=== PATIENT | male | born 1945 | race Caucasian/White ===

== ENCOUNTER 2019-05-28 15:46 | Inpatient (IN) ==
[2019-05-28] MEDS ORDERED: Triamcinolone Acet 0.1% CRM 15 GM TUBE TP PRN (21:10)
[2019-05-28] MEDS ORDERED: Nitroglycerin 0.4 MG TAB.SUBL SL PRN (21:10)
[2019-05-28] MEDS: Gabapentin 400 MG CAPSULE PO SCH (22:48)
[2019-05-28] MEDS: Apixaban 5 MG TABLET PO SCH (22:50)
[2019-05-29 05:35] LABS: Basophils % 0.6 %; Eosinophils # 0.5 K/mcL (0.0-0.6); Eosinophils % 6.9 %; Hematocrit 25.5 % (37.5-50.1); Hemoglobin 8.1 g/dL (12.9-16.9); Immature Granulocytes % 0.6 % (0-4); Lymphocytes # 0.7 K/mcL (0.6-4.6); Lymphocytes % 9.5 %; Mean Corpuscular HGB Conc 31.8 g/dL (31.6-35.5); Mean Corpuscular Hemoglobin 25.4 pg (28.0-33.3); Mean Corpuscular Volume 79.9 fL (83.0-100.0); Monocytes # 0.7 K/mcL (0.0-1.3); Monocytes % 9.6 %; Platelet Count 325 K/mcL (140-400); Red Blood Count 3.19 M/mcL (4.19-5.50); Red Cell Distribution Width 20.1 % (11.5-14.5); Segmented Neutrophils % 72.8 %; White Blood Count 6.9 K/mcL (4.3-11.1)
[2019-05-29 05:52] LABS: Calcium 7.9 mg/dL (8.6-10.3)
[2019-05-29] MEDS ORDERED: *HR* Metformin 500 MG TABLET PO SCH (08:00)
[2019-05-29] MEDS ORDERED: Potassium Chloride Elixir 20 MEQ/15 ML UDC PO SCH (09:00)
[2019-05-29] MEDS ORDERED: Apixaban 5 MG TABLET PO SCH (09:00)
[2019-05-29] MEDS ORDERED: Gabapentin 400 MG CAPSULE PO SCH (09:00)
[2019-05-29] MEDS ORDERED: hydroCHLOROthiazide 25 MG TABLET PO SCH (09:00)
[2019-05-29] MEDS ORDERED: DAPTOmycin 500 MG VIAL IVPB SCH (09:00)
[2019-05-29] MEDS ORDERED: Dextrose Gel 15 GM/37.5 ML TUBE PO PRN ×2 (09:07)
[2019-05-29] MEDS ORDERED: D5% in Water 1,000 ML IVC PRN (09:07)
[2019-05-29] MEDS ORDERED: *HR* Dextrose 50 % in Water (Syg) 50 ML SYRINGE IVP PRN (09:07)
[2019-05-29] MEDS: Gabapentin 400 MG CAPSULE PO SCH (09:57)
[2019-05-29] MEDS: DAPTOmycin 480 MG in 0.9 % Sodium Chloride 100 ML IVPB SCH (10:02)
[2019-05-29] MEDS: Apixaban 5 MG TABLET PO SCH ×2 (10:10→20:34)
[2019-05-29] MEDS: Metoprolol XL (24 HR) Succ 50 MG TAB.ER.24H PO SCH (10:10)
[2019-05-29] MEDS: Lactobacillus 1 EACH CAP.SPRINK PO SCH (10:10)
[2019-05-29] MEDS: Aspirin Enteric Coated 81 MG Tablet PO SCH (10:10)
[2019-05-29] MEDS: Nystatin POWDER 30 GM BOTTLE TP SCH ×2 (10:12→22:12)
[2019-05-29] MEDS: amLODIPine 5 MG TABLET PO SCH (10:29)
[2019-05-29] MEDS: Insulin LISPRO 300 UNITS/3 ML VIAL SQ SCH ×3 (12:25→21:09)
[2019-05-29] MEDS: hydrALAZINE 25 MG TABLET PO SCH ×2 (17:06→23:25)
[2019-05-29] MEDS: Gabapentin 300 MG CAPSULE PO SCH ×2 (17:06→20:32)
[2019-05-29] MEDS: Famotidine 20 MG TABLET PO SCH (20:31)
[2019-05-30] MEDS: Insulin LISPRO 300 UNITS/3 ML VIAL SQ SCH ×4 (08:41→20:39)
[2019-05-30] MEDS: Nystatin POWDER 30 GM BOTTLE TP SCH ×2 (09:29→20:50)
[2019-05-30] MEDS: Apixaban 5 MG TABLET PO SCH ×2 (09:50→20:50)
[2019-05-30] MEDS: amLODIPine 5 MG TABLET PO SCH (09:50)
[2019-05-30] MEDS: hydrALAZINE 25 MG TABLET PO SCH ×2 (09:50→17:29)
[2019-05-30] MEDS: Gabapentin 300 MG CAPSULE PO SCH ×3 (09:50→20:50)
[2019-05-30] MEDS: Aspirin Enteric Coated 81 MG Tablet PO SCH (09:50)
[2019-05-30] MEDS: DAPTOmycin 480 MG in 0.9 % Sodium Chloride 100 ML IVPB SCH (09:50)
[2019-05-30] MEDS: Lactobacillus 1 EACH CAP.SPRINK PO SCH (09:51)
[2019-05-30] MEDS: Metoprolol XL (24 HR) Succ 50 MG TAB.ER.24H PO SCH (09:51)
[2019-05-30 09:56] LABS: Basophils % 0.4 %; Eosinophils # 0.2 K/mcL (0.0-0.6); Hemoglobin 9.5 g/dL (12.9-16.9); Immature Granulocytes % 0.4 % (0-4); Lymphocytes # 0.6 K/mcL (0.6-4.6); Lymphocytes % 6.4 %; Mean Corpuscular HGB Conc 31.7 g/dL (31.6-35.5); Mean Corpuscular Hemoglobin 25.3 pg (28.0-33.3); Mean Corpuscular Volume 79.8 fL (83.0-100.0); Mean Platelet Volume 9.2 fL (9.4-12.4); Monocytes # 0.6 K/mcL (0.0-1.3); Monocytes % 6.8 %; Neutrophils # 7.7 K/mcL (1.6-8.9); Platelet Count 422 K/mcL (140-400); Red Blood Count 3.76 M/mcL (4.19-5.50); Red Cell Distribution Width 20.8 % (11.5-14.5); White Blood Count 9.1 K/mcL (4.3-11.1)
[2019-05-30 10:08] LABS: Calcium 8.5 mg/dL (8.6-10.3); Potassium 3.6 mEq/L (3.5-5.1)
[2019-05-30] MEDS: Famotidine 20 MG TABLET PO SCH (20:50)
[2019-05-31] MEDS: hydrALAZINE 25 MG TABLET PO SCH ×3 (01:21→16:49)
[2019-05-31] MEDS: Metoprolol XL (24 HR) Succ 50 MG TAB.ER.24H PO SCH (09:38)
[2019-05-31] MEDS: Apixaban 5 MG TABLET PO SCH ×2 (09:38→21:16)
[2019-05-31] MEDS: Aspirin Enteric Coated 81 MG Tablet PO SCH (09:38)
[2019-05-31] MEDS: Lactobacillus 1 EACH CAP.SPRINK PO SCH (09:38)
[2019-05-31] MEDS: Gabapentin 300 MG CAPSULE PO SCH ×3 (09:39→21:16)
[2019-05-31] MEDS: Insulin LISPRO 300 UNITS/3 ML VIAL SQ SCH ×4 (09:39→20:21)
[2019-05-31] MEDS: amLODIPine 5 MG TABLET PO SCH (09:39)
[2019-05-31] MEDS: DAPTOmycin 480 MG in 0.9 % Sodium Chloride 100 ML IVPB SCH (09:39)
[2019-05-31] MEDS: Nystatin POWDER 30 GM BOTTLE TP SCH ×2 (09:40→21:22)
[2019-05-31] MEDS ORDERED: Isovue-370 500 ML BOTTLE IVP ONE ×2 (10:21→10:28)
[2019-05-31] MEDS: Famotidine 20 MG TABLET PO SCH (21:16)
[2019-06-01] MEDS: hydrALAZINE 25 MG TABLET PO SCH ×3 (00:11→15:03)
[2019-06-01] MEDS: Insulin LISPRO 300 UNITS/3 ML VIAL SQ SCH ×4 (08:47→21:29)
[2019-06-01] MEDS: Aspirin Enteric Coated 81 MG Tablet PO SCH (09:02)
[2019-06-01] MEDS: Gabapentin 300 MG CAPSULE PO SCH ×4 (09:02→23:22)
[2019-06-01] MEDS: DAPTOmycin 480 MG in 0.9 % Sodium Chloride 100 ML IVPB SCH (09:02)
[2019-06-01] MEDS: amLODIPine 5 MG TABLET PO SCH (09:03)
[2019-06-01] MEDS: Metoprolol XL (24 HR) Succ 50 MG TAB.ER.24H PO SCH (09:03)
[2019-06-01] MEDS: Lactobacillus 1 EACH CAP.SPRINK PO SCH (09:03)
[2019-06-01] MEDS: Apixaban 5 MG TABLET PO SCH ×3 (09:03→23:22)
[2019-06-01] MEDS: Nystatin POWDER 30 GM BOTTLE TP SCH ×3 (09:04→23:22)
[2019-06-01 09:30] LABS: Basophils # 0.1 K/mcL (0.0-0.2); Basophils % 0.5 %; Eosinophils # 0.2 K/mcL (0.0-0.6); Eosinophils % 2.3 %; Hematocrit 31.4 % (37.5-50.1); Hemoglobin 9.7 g/dL (12.9-16.9); Immature Granulocytes % 0.5 % (0-4); Lymphocytes # 0.8 K/mcL (0.6-4.6); Lymphocytes % 8.7 %; Mean Corpuscular HGB Conc 30.9 g/dL (31.6-35.5); Mean Corpuscular Hemoglobin 25.1 pg (28.0-33.3); Mean Corpuscular Volume 81.1 fL (83.0-100.0); Mean Platelet Volume 9.4 fL (9.4-12.4); Monocytes # 0.9 K/mcL (0.0-1.3); Monocytes % 9.2 %; Neutrophils # 7.5 K/mcL (1.6-8.9); Platelet Count 453 K/mcL (140-400); Red Blood Count 3.87 M/mcL (4.19-5.50); Red Cell Distribution Width 21.5 % (11.5-14.5); Segmented Neutrophils % 78.8 %; White Blood Count 9.5 K/mcL (4.3-11.1)
[2019-06-01 09:43] LABS: Calcium 8.8 mg/dL (8.6-10.3); Potassium 3.7 mEq/L (3.5-5.1)
[2019-06-01] MEDS: Famotidine 20 MG TABLET PO SCH ×2 (21:28→23:22)
[2019-06-02] MEDS: hydrALAZINE 25 MG TABLET PO SCH ×3 (00:07→17:28)
[2019-06-02] MEDS: Insulin LISPRO 300 UNITS/3 ML VIAL SQ SCH ×4 (07:30→20:36)
[2019-06-02] MEDS: amLODIPine 5 MG TABLET PO SCH (09:47)
[2019-06-02] MEDS: Metoprolol XL (24 HR) Succ 50 MG TAB.ER.24H PO SCH (09:47)
[2019-06-02] MEDS: Apixaban 5 MG TABLET PO SCH ×2 (09:47→20:35)
[2019-06-02] MEDS: Gabapentin 300 MG CAPSULE PO SCH ×3 (09:48→20:35)
[2019-06-02] MEDS: Nystatin POWDER 30 GM BOTTLE TP SCH ×2 (09:52→20:48)
[2019-06-02] MEDS: Lactobacillus 1 EACH CAP.SPRINK PO SCH (10:09)
[2019-06-02] MEDS: Aspirin Enteric Coated 81 MG Tablet PO SCH (10:09)
[2019-06-02] MEDS: DAPTOmycin 480 MG in 0.9 % Sodium Chloride 100 ML IVPB SCH (10:27)
[2019-06-02] MEDS ORDERED: DAPTOmycin 480 MG in 0.9 % Sodium Chloride 100 ML IVPB ONE (17:00)
[2019-06-02] MEDS: Famotidine 20 MG TABLET PO SCH (20:48)
[2019-06-03] MEDS: hydrALAZINE 25 MG TABLET PO SCH ×3 (03:03→18:03)
[2019-06-03 06:06] LABS: Basophils % 0.5 %; Eosinophils # 0.4 K/mcL (0.0-0.6); Eosinophils % 4.5 %; Hematocrit 28.8 % (37.5-50.1); Hemoglobin 8.9 g/dL (12.9-16.9); Immature Granulocytes % 0.5 % (0-4); Lymphocytes # 0.7 K/mcL (0.6-4.6); Lymphocytes % 8.6 %; Mean Corpuscular HGB Conc 30.9 g/dL (31.6-35.5); Mean Corpuscular Volume 80.9 fL (83.0-100.0); Mean Platelet Volume 9.7 fL (9.4-12.4); Monocytes # 0.6 K/mcL (0.0-1.3); Monocytes % 7.3 %; Neutrophils # 6.5 K/mcL (1.6-8.9); Platelet Count 417 K/mcL (140-400); Red Blood Count 3.56 M/mcL (4.19-5.50); Red Cell Distribution Width 21.3 % (11.5-14.5); Segmented Neutrophils % 78.6 %; White Blood Count 8.2 K/mcL (4.3-11.1)
[2019-06-03 06:17] LABS: Calcium 8.7 mg/dL (8.6-10.3); Potassium 3.5 mEq/L (3.5-5.1)
[2019-06-03] MEDS: Insulin LISPRO 300 UNITS/3 ML VIAL SQ SCH ×4 (07:55→22:48)
[2019-06-03] MEDS: Gabapentin 300 MG CAPSULE PO SCH ×3 (09:54→22:30)
[2019-06-03] MEDS: amLODIPine 5 MG TABLET PO SCH ×2 (09:54→13:02)
[2019-06-03] MEDS: Aspirin Enteric Coated 81 MG Tablet PO SCH ×2 (09:54→13:02)
[2019-06-03] MEDS: Apixaban 5 MG TABLET PO SCH ×3 (09:54→22:30)
[2019-06-03] MEDS: Lactobacillus 1 EACH CAP.SPRINK PO SCH ×2 (09:54→13:02)
[2019-06-03] MEDS: Metoprolol XL (24 HR) Succ 50 MG TAB.ER.24H PO SCH ×2 (09:55→13:03)
[2019-06-03] MEDS: Nystatin POWDER 30 GM BOTTLE TP SCH ×2 (09:55→22:48)
[2019-06-03] MEDS: Famotidine 20 MG TABLET PO SCH (22:30)
[2019-06-04] MEDS: hydrALAZINE 25 MG TABLET PO SCH ×3 (01:35→16:47)
[2019-06-04] MEDS: amLODIPine 5 MG TABLET PO SCH (08:34)
[2019-06-04] MEDS: Gabapentin 300 MG CAPSULE PO SCH ×3 (08:34→22:13)
[2019-06-04] MEDS: Metoprolol XL (24 HR) Succ 50 MG TAB.ER.24H PO SCH (08:35)
[2019-06-04] MEDS: Apixaban 5 MG TABLET PO SCH ×2 (08:35→22:13)
[2019-06-04] MEDS: Aspirin Enteric Coated 81 MG Tablet PO SCH (08:35)
[2019-06-04] MEDS: Lactobacillus 1 EACH CAP.SPRINK PO SCH (08:48)
[2019-06-04] MEDS: Nystatin POWDER 30 GM BOTTLE TP SCH (08:49)
[2019-06-04] MEDS: Insulin LISPRO 300 UNITS/3 ML VIAL SQ SCH ×4 (08:49→22:13)
[2019-06-04] MEDS: Famotidine 20 MG TABLET PO SCH (22:13)
[2019-06-05] MEDS: hydrALAZINE 25 MG TABLET PO SCH ×3 (04:59→17:33)
[2019-06-05] MEDS: Nystatin POWDER 30 GM BOTTLE TP SCH ×3 (04:59→20:28)
[2019-06-05] MEDS: Metoprolol XL (24 HR) Succ 50 MG TAB.ER.24H PO SCH (10:25)
[2019-06-05] MEDS: Apixaban 5 MG TABLET PO SCH ×2 (10:25→20:28)
[2019-06-05] MEDS: Insulin LISPRO 300 UNITS/3 ML VIAL SQ SCH ×4 (10:25→20:28)
[2019-06-05] MEDS: Gabapentin 300 MG CAPSULE PO SCH ×3 (10:25→20:27)
[2019-06-05] MEDS: amLODIPine 5 MG TABLET PO SCH (10:25)
[2019-06-05] MEDS: Aspirin Enteric Coated 81 MG Tablet PO SCH (10:25)
[2019-06-05] MEDS: Lactobacillus 1 EACH CAP.SPRINK PO SCH (10:26)
[2019-06-05] MEDS: Famotidine 20 MG TABLET PO SCH (20:41)
[2019-06-06] MEDS: Insulin LISPRO 300 UNITS/3 ML VIAL SQ SCH ×4 (08:43→22:45)
[2019-06-06] MEDS: Gabapentin 300 MG CAPSULE PO SCH ×3 (11:06→22:45)
[2019-06-06] MEDS: Aspirin Enteric Coated 81 MG Tablet PO SCH (11:06)
[2019-06-06] MEDS: Lactobacillus 1 EACH CAP.SPRINK PO SCH (11:22)
[2019-06-06] MEDS: Apixaban 5 MG TABLET PO SCH ×2 (11:23→22:45)
[2019-06-06] MEDS: hydrALAZINE 25 MG TABLET PO SCH ×3 (11:23→16:59)
[2019-06-06] MEDS: amLODIPine 5 MG TABLET PO SCH (11:24)
[2019-06-06] MEDS: Nystatin POWDER 30 GM BOTTLE TP SCH ×2 (11:25→22:45)
[2019-06-06] MEDS: Metoprolol XL (24 HR) Succ 50 MG TAB.ER.24H PO SCH (11:25)
[2019-06-06 13:02] LABS: Basophils % 0.4 %; Eosinophils # 0.2 K/mcL (0.0-0.6); Eosinophils % 2.4 %; Hematocrit 29.1 % (37.5-50.1); Immature Granulocytes % 0.4 % (0-4); Lymphocytes # 0.4 K/mcL (0.6-4.6); Mean Corpuscular HGB Conc 30.9 g/dL (31.6-35.5); Mean Corpuscular Hemoglobin 25.1 pg (28.0-33.3); Mean Corpuscular Volume 81.1 fL (83.0-100.0); Mean Platelet Volume 9.4 fL (9.4-12.4); Monocytes # 0.8 K/mcL (0.0-1.3); Monocytes % 10.2 %; Platelet Count 353 K/mcL (140-400); Red Blood Count 3.59 M/mcL (4.19-5.50); Red Cell Distribution Width 21.1 % (11.5-14.5); Segmented Neutrophils % 81.6 %; White Blood Count 7.4 K/mcL (4.3-11.1)
[2019-06-06 13:24] LABS: Alanine Aminotransferase 29 Units/L (7-52); Albumin 3.2 g/dL (3.5-5.7); Albumin/Globulin Ratio 0.9 (1.1-2.2); Alkaline Phosphatase 130 Units/L (34-104); Aspartate Amino Transferase 33 Units/L (13-39); BUN/Creatinine Ratio 9 (6-26); Bilirubin,Total 0.3 mg/dL (0.3-1.0); Blood Urea Nitrogen 13 mg/dL (8-23); Calcium 8.5 mg/dL (8.6-10.3); Carbon Dioxide 22 mEq/L (23-29); Chloride 99 mEq/L (98-107); Globulin 3.7 g/dL (2.4-3.5); Glucose 102 mg/dL (70-105); Osmolality,Calculated 272 (280-300); Potassium 3.2 mEq/L (3.5-5.1); Sodium 131 mEq/L (136-145); Total Protein 6.9 g/dL (6.4-8.9); eGFR For African Americans > 60 (> 60); eGFR For Non-African Americans 51 (> 60)
[2019-06-06 13:49] LABS: ABG Base Excess -2 mEq/L (-2 to 3); ABG HCO3 22 mEq/L (21-27); ABG Oxygen Saturation 97 % (95-98); ABG PCO2 34 mmHg (35-45); ABG PH 7.41 pH Units (7.32-7.45); ABG PO2 91 mmHg (85-104); ABG TCO2 23 mEq/L (20-26)
[2019-06-06] MEDS ORDERED: *HR* LORazepam 2 MG/ML VIAL IVP ONE (13:57)
[2019-06-06 19:21] LABS: C-Reactive Protein 20 mg/L (Less than 10)
[2019-06-06 22:36] LABS: Bilirubin,Urine Small (Negative); Blood,Urine Large (Negative); Clarity,Urine Clear (Clear); Color,Urine Yellow (Yellow); Glucose,Urine (UA) Normal (Normal); Ketones,Urine Trace mg/dL (Negative); Leukocyte Esterase,Urine Small (Negative); Nitrite,Urine Negative (Negative); PH,Urine 5.5 pH Units (5.0-8.0); Protein,Urine 100 mg/dL (Neg-Trace); Specific Gravity,Urine >= 1.030 (1.010-1.025); Urobilinogen,Urine Normal (Normal)
[2019-06-06 22:44] LABS: RBC,Urine 15-30 per hpf (0-3); Yeast,Urine Many per hpf (None Seen)
[2019-06-06] MEDS: Famotidine 20 MG TABLET PO SCH (22:45)
[2019-06-06 22:46] LABS: Bacteria,Urine Many per hpf (None-Few); Squamous Epithelial Cell,Urine Few per lpf (None-Few)
[2019-06-07] MEDS: hydrALAZINE 25 MG TABLET PO SCH ×3 (00:15→16:18)
[2019-06-07] MEDS: Insulin LISPRO 300 UNITS/3 ML VIAL SQ SCH ×4 (08:56→22:30)
[2019-06-07] MEDS: Aspirin Enteric Coated 81 MG Tablet PO SCH (09:03)
[2019-06-07] MEDS: Apixaban 5 MG TABLET PO SCH ×2 (09:04→22:30)
[2019-06-07] MEDS: Gabapentin 300 MG CAPSULE PO SCH ×3 (09:08→22:30)
[2019-06-07] MEDS: Lactobacillus 1 EACH CAP.SPRINK PO SCH (09:08)
[2019-06-07] MEDS: amLODIPine 5 MG TABLET PO SCH (09:09)
[2019-06-07] MEDS: Metoprolol XL (24 HR) Succ 50 MG TAB.ER.24H PO SCH (09:09)
[2019-06-07] MEDS: Nystatin POWDER 30 GM BOTTLE TP SCH ×2 (09:12→22:30)
[2019-06-07] MEDS: Piperacillin/Tazobactam 3.375 GM in 0.9 % Sodium Chloride Mini Bag 100 ML IVPB SCH (18:08)
[2019-06-07] MEDS: Famotidine 20 MG TABLET PO SCH (22:30)
[2019-06-08] MEDS: hydrALAZINE 25 MG TABLET PO SCH ×3 (00:15→16:35)
[2019-06-08] MEDS: Piperacillin/Tazobactam 3.375 GM in 0.9 % Sodium Chloride Mini Bag 100 ML IVPB SCH ×2 (06:47→17:39)
[2019-06-08] MEDS: Insulin LISPRO 300 UNITS/3 ML VIAL SQ SCH ×4 (07:30→21:35)
[2019-06-08] MEDS ORDERED: Aspirin 81 MG TAB.CHEW ONE (09:47)
[2019-06-08] MEDS ORDERED: Furosemide 20 MG/2 ML VIAL IVP ONE (09:47)
[2019-06-08] MEDS ORDERED: Apixaban 5 MG TABLET ONE (09:47)
[2019-06-08] MEDS ORDERED: Metoprolol XL (24 HR) Succ 50 MG TAB.ER.24H PO ONE (09:47)
[2019-06-08] MEDS ORDERED: Fluconazole 200 MG/100 ML 200 MG/100 ML BAG ONE (12:50)
[2019-06-08] MEDS ORDERED: Bisacodyl 10 MG RECTAL SUPPOSITORY RC ONE (12:51)
[2019-06-08] MEDS: Lactobacillus 1 EACH CAP.SPRINK PO SCH (16:18)
[2019-06-08] MEDS: Aspirin Enteric Coated 81 MG Tablet PO SCH (16:18)
[2019-06-08] MEDS: Gabapentin 300 MG CAPSULE PO SCH ×3 (16:19→21:35)
[2019-06-08] MEDS: amLODIPine 5 MG TABLET PO SCH (16:19)
[2019-06-08] MEDS: Apixaban 5 MG TABLET PO SCH ×2 (16:19→21:34)
[2019-06-08] MEDS: Nystatin POWDER 30 GM BOTTLE TP SCH ×2 (16:19→21:36)
[2019-06-08] MEDS: Metoprolol XL (24 HR) Succ 50 MG TAB.ER.24H PO SCH (16:20)
[2019-06-08] MEDS: Famotidine 20 MG TABLET PO SCH (21:34)
[2019-06-09] MEDS: hydrALAZINE 25 MG TABLET PO SCH ×3 (00:12→14:29)
[2019-06-09] MEDS: Piperacillin/Tazobactam 3.375 GM in 0.9 % Sodium Chloride Mini Bag 100 ML IVPB SCH ×3 (05:10→22:05)
[2019-06-09] MEDS: Insulin LISPRO 300 UNITS/3 ML VIAL SQ SCH ×2 (07:49→12:26)
[2019-06-09] MEDS: Fluconazole 200 MG/100 ML IVPB SCH (09:33)
[2019-06-09] MEDS: *HR* Promethazine 25 MG/ML VIAL IVP PRN (09:33)
[2019-06-09] MEDS: Aspirin Enteric Coated 81 MG Tablet PO SCH (10:16)
[2019-06-09] MEDS: Apixaban 5 MG TABLET PO SCH ×2 (10:17→20:48)
[2019-06-09] MEDS: Metoprolol XL (24 HR) Succ 50 MG TAB.ER.24H PO SCH (10:17)
[2019-06-09] MEDS: amLODIPine 5 MG TABLET PO SCH (10:17)
[2019-06-09] MEDS: Gabapentin 300 MG CAPSULE PO SCH ×3 (10:17→21:00)
[2019-06-09] MEDS: Nystatin POWDER 30 GM BOTTLE TP SCH ×2 (10:17→20:47)
[2019-06-09 12:56] LABS: Hematocrit 27.7 % (37.5-50.1); Hemoglobin 8.8 g/dL (12.9-16.9); Mean Corpuscular HGB Conc 31.8 g/dL (31.6-35.5); Mean Corpuscular Hemoglobin 25.6 pg (28.0-33.3); Mean Corpuscular Volume 80.5 fL (83.0-100.0); Mean Platelet Volume 9.4 fL (9.4-12.4); Platelet Count 286 K/mcL (140-400); Red Blood Count 3.44 M/mcL (4.19-5.50); White Blood Count 3.8 K/mcL (4.3-11.1)
[2019-06-09 13:11] LABS: Alanine Aminotransferase 22 Units/L (7-52); Albumin 3.1 g/dL (3.5-5.7); Albumin/Globulin Ratio 0.8 (1.1-2.2); Alkaline Phosphatase 118 Units/L (34-104); Aspartate Amino Transferase 20 Units/L (13-39); BUN/Creatinine Ratio 12 (6-26); Bilirubin,Total 0.3 mg/dL (0.3-1.0); Blood Urea Nitrogen 15 mg/dL (8-23); Calcium 8.4 mg/dL (8.6-10.3); Carbon Dioxide 22 mEq/L (23-29); Chloride 104 mEq/L (98-107); Globulin 3.7 g/dL (2.4-3.5); Glucose 94 mg/dL (70-105); Magnesium 1.7 mg/dL (1.6-2.6); Osmolality,Calculated 287 (280-300); Potassium 2.9 mEq/L (3.5-5.1); Sodium 138 mEq/L (136-145); Total Protein 6.8 g/dL (6.4-8.9); eGFR For African Americans > 60 (> 60); eGFR For Non-African Americans 55 (> 60)
[2019-06-09] MEDS: Pantoprazole 40 MG VIAL IVP SCH (14:50)
[2019-06-09] MEDS ORDERED: Metoclopramide 10 MG/2 ML VIAL IVP SCH (18:00)
[2019-06-10] MEDS: hydrALAZINE 25 MG TABLET PO SCH ×3 (02:22→17:33)
[2019-06-10] MEDS: Piperacillin/Tazobactam 3.375 GM in 0.9 % Sodium Chloride Mini Bag 100 ML IVPB SCH ×3 (05:14→22:45)
[2019-06-10 05:40] LABS: Hematocrit 26.9 % (37.5-50.1); Hemoglobin 8.4 g/dL (12.9-16.9); Mean Corpuscular HGB Conc 31.2 g/dL (31.6-35.5); Mean Corpuscular Hemoglobin 25.2 pg (28.0-33.3); Mean Corpuscular Volume 80.8 fL (83.0-100.0); Mean Platelet Volume 9.6 fL (9.4-12.4); Platelet Count 279 K/mcL (140-400); Red Blood Count 3.33 M/mcL (4.19-5.50); Red Cell Distribution Width 21.1 % (11.5-14.5); White Blood Count 3.3 K/mcL (4.3-11.1)
[2019-06-10 05:56] LABS: BUN/Creatinine Ratio 11 (6-26); Blood Urea Nitrogen 13 mg/dL (8-23); Calcium 8.4 mg/dL (8.6-10.3); Carbon Dioxide 23 mEq/L (23-29); Chloride 105 mEq/L (98-107); Glucose 96 mg/dL (70-105); Magnesium 2.2 mg/dL (1.6-2.6); Osmolality,Calculated 286 (280-300); Sodium 138 mEq/L (136-145); eGFR For African Americans > 60 (> 60); eGFR For Non-African Americans 58 (> 60)
[2019-06-10] MEDS: Bisacodyl 10 MG RECTAL SUPPOSITORY RC SCH ×2 (06:05→11:45)
[2019-06-10] MEDS: Fluconazole 200 MG/100 ML IVPB SCH (10:18)
[2019-06-10] MEDS: Pantoprazole 40 MG VIAL IVP SCH (10:18)
[2019-06-10] MEDS: *HR* Promethazine 25 MG/ML VIAL IVP PRN (13:13)
[2019-06-10] MEDS: Aspirin Enteric Coated 81 MG Tablet PO SCH (13:17)
[2019-06-10] MEDS: Apixaban 5 MG TABLET PO SCH ×2 (13:17→21:00)
[2019-06-10] MEDS: Nystatin POWDER 30 GM BOTTLE TP SCH ×2 (13:18→21:00)
[2019-06-10] MEDS: amLODIPine 5 MG TABLET PO SCH (13:18)
[2019-06-10] MEDS: Gabapentin 300 MG CAPSULE PO SCH ×3 (13:18→21:00)
[2019-06-10] MEDS: Metoprolol XL (24 HR) Succ 50 MG TAB.ER.24H PO SCH (13:18)
[2019-06-10 14:41] LABS: Adenovirus Not Detected (Not Detect); Bordetella Pertussis Not Detected (Not Detect); Chlamydophila pneumoniae Not Detected (Not Detect); Coronavirus 229E Not Detected (Not Detect); Coronavirus HKU1 Not Detected (Not Detect); Coronavirus NL63 Not Detected (Not Detect); Coronavirus OC43 Not Detected (Not Detect); Human Metapneumovirus Not Detected (Not Detect); Human Rhinovirus/Enterovirus Not Detected (Not Detect); Influenza B Not Detected (Not Detect); Mycoplasma pneumoniae Not Detected (Not Detect); Parainfluenza Virus 1 Not Detected (Not Detect); Parainfluenza Virus 2 Not Detected (Not Detect); Parainfluenza Virus 3 Not Detected (Not Detect); Parainfluenza Virus 4 Not Detected (Not Detect); Respiratory Syncytial Virus Not Detected (Not Detect)
[2019-06-10 14:47] LABS: Influenza A Subtype 2009 H1 DETECTED (Not Detect)
[2019-06-10] MEDS: 0.9 % Sodium Chloride 1,000 ML IVC SCH (17:45)
[2019-06-11] MEDS: hydrALAZINE 25 MG TABLET PO SCH ×3 (00:15→15:39)
[2019-06-11] MEDS: 0.9 % Sodium Chloride 1,000 ML IVC SCH ×2 (03:58→14:55)
[2019-06-11] MEDS: Piperacillin/Tazobactam 3.375 GM in 0.9 % Sodium Chloride Mini Bag 100 ML IVPB SCH ×3 (06:01→22:30)
[2019-06-11] MEDS: Apixaban 5 MG TABLET PO SCH (09:15)
[2019-06-11] MEDS: Pantoprazole 40 MG VIAL IVP SCH (09:21)
[2019-06-11] MEDS: Metoprolol XL (24 HR) Succ 50 MG TAB.ER.24H PO SCH (09:21)
[2019-06-11] MEDS: Nystatin POWDER 30 GM BOTTLE TP SCH (09:55)
[2019-06-11] MEDS: amLODIPine 5 MG TABLET PO SCH (09:55)
[2019-06-11] MEDS: Gabapentin 300 MG CAPSULE PO SCH ×2 (09:55→15:39)
[2019-06-11] MEDS: Bisacodyl 10 MG RECTAL SUPPOSITORY RC SCH (09:55)
[2019-06-11] MEDS: Aspirin Enteric Coated 81 MG Tablet PO SCH (09:55)
[2019-06-12] MEDS: Nystatin POWDER 30 GM BOTTLE TP SCH ×2 (00:04→09:57)
[2019-06-12] MEDS: Mirtazapine 15 MG TABLET PO SCH (00:04)
[2019-06-12] MEDS: Apixaban 5 MG TABLET PO SCH ×2 (00:04→09:33)
[2019-06-12] MEDS: Gabapentin 300 MG CAPSULE PO SCH ×3 (00:04→14:52)
[2019-06-12] MEDS: hydrALAZINE 25 MG TABLET PO SCH ×3 (00:07→14:52)
[2019-06-12] MEDS: 0.9 % Sodium Chloride 1,000 ML IVC SCH ×3 (00:59→21:39)
[2019-06-12] MEDS: Piperacillin/Tazobactam 3.375 GM in 0.9 % Sodium Chloride Mini Bag 100 ML IVPB SCH (06:07)
[2019-06-12] MEDS: Bisacodyl 10 MG RECTAL SUPPOSITORY RC SCH (09:57)
[2019-06-12] MEDS: Aspirin Enteric Coated 81 MG Tablet PO SCH (09:57)
[2019-06-12] MEDS: Metoprolol XL (24 HR) Succ 50 MG TAB.ER.24H PO SCH (09:57)
[2019-06-12] MEDS: amLODIPine 5 MG TABLET PO SCH (09:57)
[2019-06-12 10:48] LABS: Hematocrit 26.1 % (37.5-50.1); Hemoglobin 8.2 g/dL (12.9-16.9); Mean Corpuscular HGB Conc 31.4 g/dL (31.6-35.5); Mean Corpuscular Hemoglobin 25.5 pg (28.0-33.3); Mean Corpuscular Volume 81.1 fL (83.0-100.0); Mean Platelet Volume 9.2 fL (9.4-12.4); Platelet Count 248 K/mcL (140-400); Red Blood Count 3.22 M/mcL (4.19-5.50)
[2019-06-12 11:15] LABS: BUN/Creatinine Ratio 8 (6-26); Blood Urea Nitrogen 8 mg/dL (8-23); Carbon Dioxide 20 mEq/L (23-29); Chloride 109 mEq/L (98-107); Glucose 105 mg/dL (70-105); Magnesium 1.5 mg/dL (1.6-2.6); Osmolality,Calculated 289 (280-300); Potassium 2.7 mEq/L (3.5-5.1); Sodium 140 mEq/L (136-145); eGFR For African Americans > 60 (> 60); eGFR For Non-African Americans > 60 (> 60)
[2019-06-12] MEDS: Pantoprazole 40 MG VIAL IVP SCH (11:29)
[2019-06-12 15:36] LABS: BUN/Creatinine Ratio 8 (6-26); Blood Urea Nitrogen 8 mg/dL (8-23); Carbon Dioxide 20 mEq/L (23-29); Chloride 109 mEq/L (98-107); Glucose 103 mg/dL (70-105); Osmolality,Calculated 287 (280-300); Potassium 2.9 mEq/L (3.5-5.1); Sodium 139 mEq/L (136-145); eGFR For African Americans > 60 (> 60); eGFR For Non-African Americans > 60 (> 60)
[2019-06-13] MEDS: Gabapentin 300 MG CAPSULE PO SCH ×2 (00:39→09:30)
[2019-06-13] MEDS: Apixaban 5 MG TABLET PO SCH ×3 (00:39→22:45)
[2019-06-13] MEDS: Nystatin POWDER 30 GM BOTTLE TP SCH ×4 (00:39→22:45)
[2019-06-13] MEDS: Mirtazapine 15 MG TABLET PO SCH ×2 (00:39→22:45)
[2019-06-13] MEDS: hydrALAZINE 25 MG TABLET PO SCH ×3 (00:40→16:54)
[2019-06-13 04:40] LABS: BUN/Creatinine Ratio 7 (6-26); Blood Urea Nitrogen 6 mg/dL (8-23); Calcium 8.1 mg/dL (8.6-10.3); Carbon Dioxide 16 mEq/L (23-29); Chloride 108 mEq/L (98-107); Glucose 83 mg/dL (70-105); Magnesium 1.7 mg/dL (1.6-2.6); Osmolality,Calculated 281 (280-300); Potassium 3.2 mEq/L (3.5-5.1); Sodium 137 mEq/L (136-145); eGFR For African Americans > 60 (> 60); eGFR For Non-African Americans > 60 (> 60)
[2019-06-13] MEDS: Metoprolol XL (24 HR) Succ 50 MG TAB.ER.24H PO SCH (09:29)
[2019-06-13] MEDS: amLODIPine 5 MG TABLET PO SCH (09:29)
[2019-06-13] MEDS: Aspirin Enteric Coated 81 MG Tablet PO SCH (09:30)
[2019-06-13] MEDS: 0.9 % Sodium Chloride 1,000 ML IVC SCH ×3 (09:30→22:15)
[2019-06-13] MEDS: Bisacodyl 10 MG RECTAL SUPPOSITORY RC SCH (09:46)
[2019-06-14 05:26] LABS: BUN/Creatinine Ratio 6 (6-26); Blood Urea Nitrogen 5 mg/dL (8-23); Carbon Dioxide 19 mEq/L (23-29); Chloride 106 mEq/L (98-107); Glucose 106 mg/dL (70-105); Magnesium 1.5 mg/dL (1.6-2.6); Osmolality,Calculated 280 (280-300); Sodium 136 mEq/L (136-145); eGFR For African Americans > 60 (> 60); eGFR For Non-African Americans > 60 (> 60)
[2019-06-14] MEDS ORDERED: CloNIDine Patch 0.1 MG PATCH (WEEKLY) TD SCH (09:15)
[2019-06-14] MEDS: hydrALAZINE 25 MG TABLET PO SCH ×2 (10:13)
[2019-06-14] MEDS: Bisacodyl 10 MG RECTAL SUPPOSITORY RC SCH (10:17)
[2019-06-14] MEDS: amLODIPine 5 MG TABLET PO SCH (10:32)
[2019-06-14] MEDS: Metoprolol XL (24 HR) Succ 50 MG TAB.ER.24H PO SCH (10:33)
[2019-06-14] MEDS: Nystatin POWDER 30 GM BOTTLE TP SCH ×2 (10:34→22:24)
[2019-06-14] MEDS: Apixaban 5 MG TABLET PO SCH ×2 (10:35→22:24)
[2019-06-14] MEDS: Aspirin Enteric Coated 81 MG Tablet PO SCH (10:59)
[2019-06-14] MEDS: Mirtazapine 15 MG TABLET PO SCH (22:24)
[2019-06-15 05:39] LABS: Hematocrit 28.3 % (37.5-50.1); Hemoglobin 9.1 g/dL (12.9-16.9); Mean Corpuscular HGB Conc 32.2 g/dL (31.6-35.5); Mean Corpuscular Hemoglobin 25.3 pg (28.0-33.3); Mean Corpuscular Volume 78.8 fL (83.0-100.0); Mean Platelet Volume 9.2 fL (9.4-12.4); Platelet Count 291 K/mcL (140-400); Red Blood Count 3.59 M/mcL (4.19-5.50); Red Cell Distribution Width 20.7 % (11.5-14.5); White Blood Count 5.3 K/mcL (4.3-11.1)
[2019-06-15 06:00] LABS: Alanine Aminotransferase 13 Units/L (7-52); Albumin 3.1 g/dL (3.5-5.7); Albumin/Globulin Ratio 0.8 (1.1-2.2); Alkaline Phosphatase 101 Units/L (34-104); Aspartate Amino Transferase 13 Units/L (13-39); BUN/Creatinine Ratio 6 (6-26); Bilirubin,Total 0.4 mg/dL (0.3-1.0); Blood Urea Nitrogen 5 mg/dL (8-23); Calcium 8.4 mg/dL (8.6-10.3); Carbon Dioxide 18 mEq/L (23-29); Chloride 105 mEq/L (98-107); Globulin 3.8 g/dL (2.4-3.5); Glucose 91 mg/dL (70-105); Magnesium 1.9 mg/dL (1.6-2.6); Osmolality,Calculated 279 (280-300); Sodium 136 mEq/L (136-145); Total Protein 6.9 g/dL (6.4-8.9); eGFR For African Americans > 60 (> 60); eGFR For Non-African Americans > 60 (> 60)
[2019-06-15] MEDS: Aspirin Enteric Coated 81 MG Tablet PO SCH (13:14)
[2019-06-15] MEDS: Metoprolol XL (24 HR) Succ 50 MG TAB.ER.24H PO SCH (13:15)
[2019-06-15] MEDS: Bisacodyl 10 MG RECTAL SUPPOSITORY RC SCH (13:15)
[2019-06-15] MEDS: amLODIPine 5 MG TABLET PO SCH (13:15)
[2019-06-15] MEDS: Apixaban 5 MG TABLET PO SCH ×2 (13:15→21:28)
[2019-06-15] MEDS: Nystatin POWDER 30 GM BOTTLE TP SCH ×2 (13:15→21:28)
[2019-06-15] MEDS: Mirtazapine 15 MG TABLET PO SCH (21:28)
[2019-06-16 05:29] LABS: BUN/Creatinine Ratio 8 (6-26); Blood Urea Nitrogen 7 mg/dL (8-23); Calcium 8.5 mg/dL (8.6-10.3); Carbon Dioxide 19 mEq/L (23-29); Chloride 105 mEq/L (98-107); Glucose 95 mg/dL (70-105); Osmolality,Calculated 280 (280-300); Potassium 2.8 mEq/L (3.5-5.1); Sodium 136 mEq/L (136-145); eGFR For African Americans > 60 (> 60); eGFR For Non-African Americans > 60 (> 60)
[2019-06-16] MEDS: amLODIPine 5 MG TABLET PO SCH (08:44)
[2019-06-16] MEDS: Apixaban 5 MG TABLET PO SCH ×2 (08:44→22:44)
[2019-06-16] MEDS: Aspirin Enteric Coated 81 MG Tablet PO SCH (08:44)
[2019-06-16] MEDS: Bisacodyl 10 MG RECTAL SUPPOSITORY RC SCH (08:44)
[2019-06-16] MEDS: Metoprolol XL (24 HR) Succ 50 MG TAB.ER.24H PO SCH (08:45)
[2019-06-16] MEDS: Nystatin POWDER 30 GM BOTTLE TP SCH ×2 (08:45→22:45)
[2019-06-16] MEDS: Mirtazapine 15 MG TABLET PO SCH (22:45)
[2019-06-17] MEDS: Aspirin Enteric Coated 81 MG Tablet PO SCH (11:26)
[2019-06-17] MEDS: Nystatin POWDER 30 GM BOTTLE TP SCH ×2 (11:27→20:54)
[2019-06-17] MEDS: amLODIPine 5 MG TABLET PO SCH (11:27)
[2019-06-17] MEDS: Bisacodyl 10 MG RECTAL SUPPOSITORY RC SCH (11:27)
[2019-06-17] MEDS: Metoprolol XL (24 HR) Succ 50 MG TAB.ER.24H PO SCH (11:28)
[2019-06-17] MEDS: Apixaban 5 MG TABLET PO SCH (11:41)
[2019-06-17] MEDS ORDERED: *HR* Alteplase (Cathflo) 2 MG VIAL IVP ONE (11:54)
[2019-06-17] MEDS ORDERED: Water for inj. (sterile) 10 ML ONE (13:14)
[2019-06-17 14:51] LABS: Hematocrit 30.5 % (37.5-50.1); Hemoglobin 9.7 g/dL (12.9-16.9); Mean Corpuscular HGB Conc 31.8 g/dL (31.6-35.5); Mean Corpuscular Hemoglobin 25.3 pg (28.0-33.3); Mean Corpuscular Volume 79.6 fL (83.0-100.0); Mean Platelet Volume 9.7 fL (9.4-12.4); Platelet Count 336 K/mcL (140-400); Red Blood Count 3.83 M/mcL (4.19-5.50); Red Cell Distribution Width 21.4 % (11.5-14.5); White Blood Count 6.8 K/mcL (4.3-11.1)
[2019-06-17 15:08] LABS: Alanine Aminotransferase 10 Units/L (7-52); Albumin 3.1 g/dL (3.5-5.7); Albumin/Globulin Ratio 0.8 (1.1-2.2); Alkaline Phosphatase 104 Units/L (34-104); Aspartate Amino Transferase 12 Units/L (13-39); BUN/Creatinine Ratio 11 (6-26); Bilirubin,Total 0.4 mg/dL (0.3-1.0); Blood Urea Nitrogen 10 mg/dL (8-23); Carbon Dioxide 19 mEq/L (23-29); Chloride 104 mEq/L (98-107); Glucose 110 mg/dL (70-105); Magnesium 1.7 mg/dL (1.6-2.6); Osmolality,Calculated 282 (280-300); Potassium 3.2 mEq/L (3.5-5.1); Sodium 136 mEq/L (136-145); Total Protein 7.1 g/dL (6.4-8.9); eGFR For African Americans > 60 (> 60); eGFR For Non-African Americans > 60 (> 60)
[2019-06-17] MEDS: Potassium Chloride 40 MEQ in D5% in 0.45% NACL 1,000 ML IVC SCH (17:17)
[2019-06-17] MEDS: *HR* Enoxaparin 100 MG/ML SYRINGE SQ SCH (17:23)
[2019-06-17] MEDS: Mirtazapine 15 MG TABLET PO SCH (20:54)
[2019-06-18] MEDS: Potassium Chloride 40 MEQ in D5% in 0.45% NACL 1,000 ML IVC SCH ×2 (04:25→06:44)
[2019-06-18] MEDS ORDERED: *HR* LORazepam 2 MG/ML VIAL IVP ONE (05:49)
[2019-06-18] MEDS: *HR* Enoxaparin 100 MG/ML SYRINGE SQ SCH (06:45)
[2019-06-18 07:48] VITALS: BP 142/81
[2019-06-18] MEDS: Bisacodyl 10 MG RECTAL SUPPOSITORY RC SCH (09:09)
[2019-06-18] MEDS: Metoprolol XL (24 HR) Succ 50 MG TAB.ER.24H PO SCH (09:23)
[2019-06-18] MEDS: Nystatin POWDER 30 GM BOTTLE TP SCH (09:23)
[2019-06-18] MEDS: Aspirin Enteric Coated 81 MG Tablet PO SCH (09:23)
[2019-06-18] MEDS: amLODIPine 5 MG TABLET PO SCH (09:23)
[2019-06-18] MEDS ORDERED: Nystatin POWDER 30 GM BOTTLE TP PRN (09:33)
[2019-06-18 10:57] LABS: BUN/Creatinine Ratio 10 (6-26); Blood Urea Nitrogen 9 mg/dL (8-23); Calcium 8.6 mg/dL (8.6-10.3); Carbon Dioxide 22 mEq/L (23-29); Chloride 107 mEq/L (98-107); Glucose 138 mg/dL (70-105); Magnesium 1.5 mg/dL (1.6-2.6); Osmolality,Calculated 283 (280-300); Potassium 3.3 mEq/L (3.5-5.1); Sodium 136 mEq/L (136-145); eGFR For African Americans > 60 (> 60); eGFR For Non-African Americans > 60 (> 60)
== END 2019-06-18 15:22 | disposition short-term general hospital (02) | DRG 56 ==
LOC: INPGRE 19:27
PROVIDERS: ADMIT Family Medicine; ATTEND Family Medicine